=== PATIENT | male | born 1980 | race Caucasian/White ===

== ENCOUNTER 2019-06-10 14:38 | Emergency (ER) | payer OTHER, SELFPAY ==
[2019-06-10 14:39] VITALS: BP 167/108; PULSE 80; RESP 17; TEMP 36.8; O2SAT 96; BMI 28.3
--- NOTE | 2019-06-10 14:56 | CT_ITS ---
STUDY: CT CHEST WITHOUT CONTRAST REASON FOR EXAM: Male, 38 years old. FELL OFF HORSE -- RIGHT SHOULDER/CHEST PAIN RADIATION DOSAGE (If Supplied By Facility): CTDIvol = ( 17.14 ) mGy, DLP = ( 625.26 ) mGycm TECHNIQUE: Transaxial imaging was performed without the administration of intravenous contrast material. Multiplanar coronal and sagittal images were reformatted. Individualized dose optimization techniques were used for this CT. COMPARISON: None. FINDINGS: Small benign-appearing bilateral axillary lymph nodes. The lungs are normal. There is no demonstrated pleural abnormality. Normal heart and pericardium. Normal mediastinum. Normal hilar regions. Normal unenhanced pulmonary arteries. Normal aorta arch and descending thoracic aorta. Normal osseous structures. Small hiatal hernia. CT/Chest without Contrast IMPRESSION: Normal unenhanced CT Chest examination. Electronically Signed: Carlton Doherty, at 15:32 EDT , Service support ,
--- NOTE | 2019-06-10 14:58 | ED.DCSUM_ITS ---
History of Present Illness Chief Complaint: Fall Informant: Patient Occurred: Today Mechanism/Context: - - fall off horse Quality of Pain: Sharp Narrative: Patient is a 38-year-old male with incidental history of sick sinus syndrome presenting after a fall off a horse. Patient just got a new horse and was trying to write for the first time. The horse bucked him off. Patient landed on his right backslash shoulder. He landed in sand. He states the horse was 16 hands tall. He was not stepped on by the horse, did not hit his head and did not have loss of consciousness. He denies any other injuries. He did take 800 mg ibuprofen before coming in. The injury happened about 45 minutes prior to arrival. Patient came by private vehicle. He has pain when he takes a deep breath and pain in his back below his right shoulder blade. He denies any numbness or weakness. He denies any other complaints at this time. Past Medical History - Allergies and Home Meds Allergies/Adverse Reactions: Allergies No Known Allergies Allergy (Verified 06/10/19 14:39) Primary Care Physician: Care Physician,No Primary [Primary Care Provider] - Past Medical History: - - Sick sinus syndrome Surgical History: no surgical history Smoking Status: Never smoker Review of Systems General: Denies: Chills, Fever, Sweats Eyes: Denies: Visual changes - bilaterally, Diplopia ENT: Denies: Rhinorrhea, Sore throat Cardiovascular: Denies: Chest pain, Palpitations Respiratory: Reports: Dyspnea. Denies: Cough, Dyspnea on exertion Gastrointestinal: Denies: Abdominal pain, Nausea, Vomiting, Diarrhea, Melena, Hematochezia Genitourinary: Denies: Dysuria, Hematuria, Frequency Musculoskeletal: Reports: Back pain - right thoracic . Denies: Neck pain, Extremity Pain Skin: Denies: Rash, Abrasions, Wounds Neurological: Denies: Headache, Weakness, Parasthesia, Numbness Physical Exam Vital Signs/Narrative: Vital Signs Temp Pulse Resp BP Pulse Ox 06/10/19 14:39 98.3 F 80 17 167/108 H 96 Inital Vital Signs reviewed: Yes General: Well nourished, Well developed Head: Normocephalic, Atraumatic Eyes: Perrl, EOMI ENT: TM's clear, No hemotympanum or drainage, No trauma. Negative for: Otorrhea, Nasal trauma, Nasal septal hematoma Neck: Nontender, Full ROM. Negative for: Spinal Tenderness, Paraspinal Tenderness Cardiovascular: Regular rate, Regular rhythm, No murmurs Respiratory: No distress, CTA bilaterally, Chest nontender, - - No chest wall crepitus. Negative for: Diminished, Decreased Air Movement, Chest tenderness Abdomen: Soft, Nontender, Nondistended, Normal bowel sounds Back: Paraspinal Tenderness - Significant paraspinal tenderness and edema of the right thoracic posterior ribs approximately 8 through 10. No associated ecchymosis or crepitus. No paradoxical movements with breathing. Negative for: Spinal Tenderness Extremeties: Pelvis stable. No gross bony tenderness or deformity. Normal range of motion of all major joints. Specifically, right shoulder?no deformity. Normal range of motion. Skin: Normal color, No rash. Negative for: Trauma Neurological: Alert, Oriented x3, Cranial nerves II-XII grossly intact, Normal Strength, Normal Sensation Psychological: Normal affect Diagnostic/Tx/Re-eval Diagnostic Data Chest CT 06/10/19 14:56 IMPRESSION: Normal unenhanced CT Chest examination. Electronically Signed: Carlton Doherty, at 15:32 EDT , Service support , - Medical Decision Making Patient is evaluated for right-sided posterior rib pain after fall off a horse. He is hemodynamically stable. He is not have any respiratory compromise. Is not having obvious flail chest or other signs of trauma. He not hit his head and his injury seem to be well localized to his posterior ribs. CT of the chest does not show any pneumothorax, fracture or involvement of the scapular. Patient is given IV morphine in the ER for pain control. He states that significantly cut the edge off his pain. He did take 800 mg of ibuprofen prior to arrival. Patient is counseled that he likely has a rib contusion. He is counseled on deep breathing exercises to prevent atelectasis and subsequent pneumonia. He will be discharged home with a short course of [place] for pain control. He will continue take ibuprofen. He is given a Lidoderm patch in the emergency room as well for pain control. Patient is counseled on signs and symptoms requiring return to the emergency room. Patient verbalizes agreement and understand this plan. Patient discharged home in stable and improved condition. ED Disposition - Plan for ED Patient: Disposition: Home or Assisted Living Diagnosis: Fall from horse, Contusion of rib on right side Instructions: ED CONTUSION Rib Prescriptions: Hydrocodone Bitart/Apap 5-325 [[place] 5MG-325MG] 1 tab PO Q6H PRN PRN 3 Days #12 tab PRN Reason: Pain Prescription Printed Additional Instructions: Return with any worsening breathing or other new concerns that you would like to have evaluated further.
[2019-06-10] MEDS: Morphine 4 MG/ML Syringe IV (15:00)
[2019-06-10] MEDS: Lidocaine 5% Patch 1 PATCH TOPICAL (16:37)
[2019-06-10 16:38] VITALS: PULSE 68; RESP 18; O2SAT 97
== END 2019-06-10 16:39 | disposition home or self-care (01) ==
PROVIDERS: Emergency Provider Emergency Medicine
DX: S20.211A Contusion of right front wall of thorax, initial encounter (principal); V80.010A Animal-rider injured by fall from or being thrown from horse in noncollision accident, initial encounter; Y93.52 Activity, horseback riding; Y92.9 Unspecified place or not applicable; Y99.8 Other external cause status
CPT/HCPCS: 71250; 96374; 99283; A4216